=== PATIENT | female | born 1955 | race Caucasian/White ===

== ENCOUNTER 2019-10-04 21:02 | Emergency (ER) | payer MEDICARE, OTHER ==
[2019-10-04] MEDS ORDERED: MORPHINE SULFATE 2 MG INJ IV ONE (21:22)
[2019-10-04] MEDS ORDERED: Zofran 4 MG/2 ML VIAL IV ONE (21:23)
[2019-10-04] MEDS ORDERED: Zofran 4 MG/2 ML VIAL ONE (21:26)
[2019-10-04] MEDS ORDERED: MORPHINE SULFATE 2 MG INJ ONE (21:27)
--- NOTE | 2019-10-04 21:46 | ERPHSYRPT ---
- History of Present Illness Time Seen by Provider: 10/04/19 21:15 Source: patient Exam Limitations: no limitations Patient Subjective Stated Complaint: pt states she tripped at home and landed on her rt side. c/o pain in rt shoulder. Triage Nursing Assessment: pt alert and oriented, asnwers questions approp. pt arrive per ambulance. transfers to stretcher with assist of 4. pt splinting rt arm. grimacing in pain. skin pink warm and dry. respirations nonlabored. tendernes to rt upper amr, shoulder, radial pulse to rt wnl, pt reports good sensation to rt arm and hand. pt able to move fingers without diff. Physician History: Patient is a 64-year-old female presents to our ED with complaints of right shoulder and upper humerus pain. Patient states she was walking in her house. Her pajama bottoms got caught on a nail causing her to fall. Patient fell onto her right shoulder. Injury occurred approximately an hour prior to arrival. Pain described as an ache that is localized. No radiation. Pain worse with movement and palpation. Pain improved with rest. No other injuries reported. No BHT. No LOC. No neck pain. Cervical spine cleared clinically. No chest pain or shortness of breath. The fall was purely mechanical. No associated nausea vomiting or diaphoresis. No associated chest pain or shortness of breath. Patient has no other complaints or injuries at this time. Patient voices no other complaints. Patient arrived via EMS. Patient received morphine prior to her arrival. Pain somewhat improved. Occurred: just prior to arrival Method of Injury: fell Quality: constant Severity of Pain-Max: moderate Severity of Pain-Current: moderate Extremities Pain Location: shoulder: right, arm: right Modifying Factors: Improves With: movement Associated Symptoms: none Allergies/Adverse Reactions: codeine Allergy (Verified 10/04/19 21:25) Rash Home Medications: Azathioprine [Imuran] 50 mg PO BID 10/04/19 [History] Famotidine [Pepcid] 40 mg PO HS 10/04/19 [History] Metformin HCl 500 mg [Glucophage 500 MG] 500 mg PO HS 10/04/19 [History] PARoxetine HCl [Paxil] 40 mg PO DAILY 10/04/19 [History] hydrOXYzine HCL [Hydroxyzine HCl] 50 mg PO Q8HPRN PRN 10/04/19 [History] Hx Tetanus, Diphtheria Vaccination/Date Given: No Hx Influenza Vaccination/Date Given: Yes Hx Pneumococcal Vaccination/Date Given: Yes Immunizations Up to Date: No Travel Risk - International Travel If Yes where:: [facility] - Coronavirus Screening Has patient experienced Coronavirus symptoms: No - Review of Systems Constitutional: No Fever, No Chills Eyes: No Symptoms Ears, Nose, & Throat: No Symptoms Respiratory: No Cough, No Dyspnea Cardiac: No Chest Pain, No Edema, No Syncope Abdominal/Gastrointestinal: No Abdominal Pain, No Nausea, No Vomiting, No Diarrhea Genitourinary Symptoms: No Dysuria Musculoskeletal: No Back Pain, No Neck Pain Skin: No Rash Neurological: No Dizziness, No Focal Weakness, No Sensory Changes Psychological: No Symptoms Endocrine: No Symptoms All Other Systems: Reviewed and Negative - Past Medical History Respiratory History: Sleep Apnea Endocrine Medical History: Diabetes Type II Other Medical History: myasthenia gravis - Past Surgical History Past Surgical History: Yes Gastrointestinal: Cholecystectomy Other Surgical History: exploratry lap - Social History Smoking Status: Former smoker Exposure to second hand smoke: No Drug Use: none Patient Lives Alone: No - Nursing Vital Signs Nursing Vital Signs: Initial Vital Signs Temperature 98.4 F 10/04/19 21:06 Pulse Rate 78 10/04/19 21:06 Respiratory Rate 18 10/04/19 21:06 O2 Sat by Pulse Oximetry 98 10/04/19 21:06 Pain Scale Pain Intensity 6 - Physical Exam General Appearance: alert Eyes, Ears, Nose, Throat Exam: moist mucous membranes Neck Exam: non-tender, supple Cardiovascular/Respiratory Exam: chest non-tender, normal breath sounds, regular rate/rhythm, no respiratory distress Abdominal Exam: non-tender, No guarding Back Exam: normal inspection, No vertebral tenderness Shoulder Exam: normal inspection, no evidence of injury, bone tenderness ( Tenderness to palpation at the proximal right humerus. Overlying soft tissue intact. No open draining lesions. Extremities neurovascular intact distally. Compartments are soft. Cap refill less than 2 seconds.), limited ROM, No ecchymosis Elbow/Forearm Exam: normal inspection Wrist Exam: normal inspection Hand Exam: normal inspection Neuro/Tendon Exam: normal sensation, normal motor functions Mental Status Exam: alert, oriented x 3, cooperative Skin Exam: normal color, warm, dry SpO2: 98 O2 Delivery: Room Air - Radiology Exams Humerus X-ray Interpretation: Teleradiologist Report (right humerus neck fracture?) Ordered Tests: Active Orders 24 hr Category Date Time Status Isolation, Initiate & Maintain Q12H Care 10/04/19 21:24 Active HUMERUS Stat Exams 10/04/19 21:21 Taken SHOULDER Stat Exams 10/04/19 21:20 Taken Medication Summary Discontinued Medications Generic Name Dose Route Start Last Admin Trade Name Tay PRN Reason Stop Dose Admin Ketorolac Tromethamine 30 mg 10/04/19 22:58 Toradol 30 Mg Injection IV 10/04/19 22:59 STAT ONE Morphine Sulfate 2 mg 10/04/19 21:22 10/04/19 21:30 Morphine Sulfate 2 Mg Inj IV 10/04/19 21:23 2 mg STAT ONE Administration Morphine Sulfate Confirm 10/04/19 21:27 Morphine Sulfate 2 Mg Inj Administered 10/04/19 21:28 Dose 2 mg .ROUTE .STK-MED ONE Morphine Sulfate 4 mg 10/04/19 22:24 10/04/19 22:37 Morphine Sulfate 4 Mg Inj IV 10/04/19 22:25 4 mg STAT ONE Administration Morphine Sulfate Confirm 10/04/19 22:25 Morphine Sulfate 4 Mg Inj Administered 10/04/19 22:26 Dose 4 mg .ROUTE .STK-MED ONE Ondansetron HCl 4 mg 10/04/19 21:23 10/04/19 21:30 Zofran 4 Mg/2 Ml Vial IV 10/04/19 21:24 4 mg STAT ONE Administration Ondansetron HCl Confirm 10/04/19 21:26 Zofran 4 Mg/2 Ml Vial Administered 10/04/19 21:27 Dose 4 mg .ROUTE .STK-MED ONE - Progress Progress: improved Progress Note: 10/04/19 23:10 Patient reassessed. Pain improved. X-ray report as per the radiologist reveals a deformity at the neck of the humerus. Patient placed in upper extremity sling. Patient is now comfortable. Prescription for pain transmitted to her pharmacy. Patient states she is ready for discharge. No further work-up indicated at this time. Patient referred to orthopedic clinic for further evaluation. Counseled pt/family regarding: diagnosis, need for follow-up, rad results - Departure Departure Disposition: Home Clinical Impression: Fx humeral neck Condition: Stable Critical Care Time: No Referrals: PAUL BAUMAN [Primary Care Provider] - Additional Instructions: Discharge/Care Plan JOSE M GUZMAN was seen on 10/04/19 in the Emergency Room. The patient was counseled regarding Diagnosis,Lab results, Imaging studies, need for follow up and when to return to the Emergency Room. Prescriptions given: Discharge Note I have spoken with the patient and/or caregivers. I have explained the patient' s condition, diagnosis and treatment plan based on the information available to me at this time. I have answered the patient's and/or caregiver's questions and addressed any concerns. The patient and/or caregivers have as good understanding of the patient's diagnosis, condition and treatment plan as can be expected at this point. The vital signs have been stable. The patient's condition is stable and appropriate for discharge from the emergency department. The patient will pursue further outpatient evaluation with the primary care physician or other designated or consulting physician as outlined in the discharge instructions. The patient and/or caregivers are agreeable to this plan of care and follow-up instructions have been explained in detail. The patient and/or caregivers have received these instruction. The patient/and or caregivers are aware that any significant change in condition or worsening of symptoms should prompt an immediate return to this or the closest emergency department or call 911. Prescriptions: Ketorolac Tromethamine [Toradol] 10 mg PO Q8H PRN PRN 5 Days #15 tablet PRN Reason: Pain Outpatient Orders: Ortho Referral Time Frame: 1 Day, Location: ORTHO CLINIC
[2019-10-04] MEDS ORDERED: MORPHINE SULFATE 4 MG INJ IV ONE (22:24)
[2019-10-04] MEDS ORDERED: MORPHINE SULFATE 4 MG INJ ONE (22:25)
[2019-10-04] MEDS ORDERED: TORAdol 30 mg Injection IV ONE (22:58)
[2019-10-04 23:01] VITALS: BP 160/80; PULSE 76
[2019-10-04 23:03] VITALS: O2SAT 98
[2019-10-04] MEDS ORDERED: TORAdol 30 mg Injection ONE (23:14)
--- NOTE | 2019-10-05 07:26 | XRAY ---
Indication: Pain following fall. Comparison: None 2 views of the right humerus demonstrates nondisplaced minimally angulated humeral neck fracture. Elsewhere osteopenia and mild AC degenerative arthropathy. No other bony, articular, or soft tissue abnormalities. Comment: Preliminary interpretation was made by [facility]. No critical discrepancy.
--- NOTE | 2019-10-05 07:28 | XRAY ---
Indication: Pain following fall. Comparison: None 3 views of the right shoulder demonstrates nondisplaced minimally angulated humeral neck fracture. Elsewhere osteopenia and mild AC degenerative arthropathy. No other bony, articular, or soft tissue abnormalities. Comment: Preliminary interpretation was made by [facility]. No critical discrepancy.
== END 2019-10-04 23:35 | disposition home or self-care (01) ==
LOC: ED 21:02
DX: S42.211A Unspecified displaced fracture of surgical neck of right humerus, initial encounter for closed fracture (principal); I10 Essential (primary) hypertension; W01.0XXA Fall on same level from slipping, tripping and stumbling without subsequent striking against object, initial encounter; M25.511 Pain in right shoulder; E11.9 Type 2 diabetes mellitus without complications; G70.00 Myasthenia gravis without (acute) exacerbation; Z79.899 Other long term (current) drug therapy; Z79.84 Long term (current) use of oral hypoglycemic drugs
CPT/HCPCS: 73030; 73060; 96374; 96375; 96376; 99284; J1885; J2270; J2405

== ENCOUNTER 2024-05-08 11:32 | Emergency (ER) | payer MEDICARE, OTHER ==
--- NOTE | 2024-05-08 11:36 | ERPHSYRPT ---
- History of Present Illness Time Seen by Provider: 05/08/24 11:34 Source: patient Exam Limitations: no limitations Physician History: This is an overweight white female patient of Dr. Traore who arrives by private vehicle accompanied by her . Dr. Traore saw this patient and her office today and sent the patient to the emergency department to be evaluated secondary to a significant size abscess in the abdominal wall the right upper quadrant as well as some EKG changes she was concerned about. Patient has seen a production line operator recently and was given a clean bill of health. Patient and patient's report. Patient has no known coronary artery dise ase. Approximately 6 days ago the patient and her noticed a small raised area on the skin of the abdominal wall in the right upper quadrant. She also noticed a spider near her but not on her skin in that area. However, over the last 6 days the site has increased in size in terms of redness and abscess with drainage. There is an odor to the drainage as well. Patient has not had any documented fevers. She has a history of diabetes, myasthenia gravis and osteoarthritis. Timing/Duration: day(s) (6) Quality: painful Severity: moderate Location: other (Skin abscess right upper quadrant abdominal wall) Possible Causes: no cause identified Associated Symptoms: change in skin texture Allergies/Adverse Reactions: codeine Allergy (Verified 05/08/24 11:43) Rash pyridostigmine [From Mestinon] Allergy (Verified 05/08/24 11:43) Home Medications: Carbidopa/Levodopa [Carbidopa-Levo ER 50-200 Tab] 1 each PO QID 05/08/24 [History] Oxycodone HCl [Oxycodone HCl ER] 10 mg PO UD 05/08/24 [History] Potassium Citrate [Potassium] 99 mg PO DAILY 05/08/24 [History] Pregabalin 50 mg [Lyrica 50MG] 50 mg PO BID 05/08/24 [History] Rotigotine [Neupro] 1 ea DAILY 05/08/24 [History] Hx Tetanus, Diphtheria Vaccination/Date Given: No Hx Influenza Vaccination/Date Given: Yes Hx Pneumococcal Vaccination/Date Given: Yes Travel Risk - International Travel Have you traveled outside of the country in past 3 weeks: No - Emerging Infectious Disease Are you exhibiting symptoms associated with any current EIDs: No - Review of Systems Constitutional: No Symptoms Eyes: No Symptoms Ears, Nose, & Throat: No Symptoms Respiratory: No Symptoms Cardiac: No Symptoms Abdominal/Gastrointestinal: No Symptoms Genitourinary Symptoms: No Symptoms Musculoskeletal: No Symptoms Skin: Cellulitis (Right upper quadrant abdominal wall with associated abscess), Other (Skin abscess right upper quadrant abdominal wall) Neurological: No Symptoms Psychological: No Symptoms Endocrine: No Symptoms Hematologic/Lymphatic: No Symptoms Immunological/Allergic: No Symptoms All Other Systems: Reviewed and Negative - Past Medical History Neurological History: Other Cardiac History: No Pertinent History Respiratory History: No Pertinent History Endocrine Medical History: No Pertinent History Musculoskeletal History: Fractures, Osteoarthritis, Other Other Medical History: PATIENT REPORTS IN LAST 6 MONTHS ALSO HAVING DIFFICULTY WITH BOWEL AND BLADDER INCONTINENCE. PATIENT REPORTS FEELS WHEN SHE IS GOING BUT CAN'T STOP IT. - Past Surgical History Past Surgical History: Yes Gastrointestinal: Cholecystectomy Other Surgical History: exploratry lap - Social History Smoking Status: Former smoker Exposure to second hand smoke: No Drug Use: none Patient Lives Alone: No - Nursing Vital Signs Nursing Vital Signs: Initial Vital Signs Temperature 97.0 F 05/08/24 11:33 Pulse Rate 70 05/08/24 11:33 Respiratory Rate 20 05/08/24 11:33 Blood Pressure 148/72 05/08/24 11:33 O2 Sat by Pulse Oximetry 98 05/08/24 11:33 Pain Scale Pain Intensity 4 - Physical Exam General Appearance: no apparent distress, alert, anxiety, obese Eye Exam: PERRL/EOMI, eyes nml inspection Ears, Nose, Throat Exam: normal ENT inspection, moist mucous membranes Neck Exam: normal inspection, non-tender, supple, full range of motion Respiratory Exam: normal breath sounds, lungs clear, airway intact, No chest tenderness, No respiratory distress Cardiovascular Exam: regular rate/rhythm, normal heart sounds, normal peripheral pulses Gastrointestinal/Abdomen Exam: soft, normal bowel sounds, tenderness (In the area of the skin abscess and cellulitis of the right upper quadrant abdominal wall) Pelvic Exam: not done Rectal Exam: not done Back Exam: normal inspection, normal range of motion, No CVA tenderness, No vertebral tenderness Extremity Exam: normal inspection, normal range of motion, pelvis stable, other (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) Neurologic Exam: alert, oriented x 3, cooperative, pe manager II-XII nml as tested Lymphatic Exam: No adenopathy SpO2 Interpretation: normal O2 Delivery: Room Air Procedures - Incision and Drainage Time of Procedure: 12:10 (Malodorous pus) Site: Skin abscess of the right upper quadrant abdominal wall Anesthesia: 1% Lidocaine cc's of anesthesia: other (10 cc) I & D Procedure: betadine prep, culture obtained, other (Plain packing gauze) Results: moderate amount pus - Course Nursing assessment & vital signs reviewed: Yes EKG Interpreted by Me: RATE (83), Sinus Rhythm, NORMAL AXIS, LAFB, Right Bundle Branch Block, Other (Short TN interval PVCs. QTc is 431. No evidence of any acute ischemia on today's twelve-lead EKG.) Ordered Tests: Active Orders 24 hr Category Date Time Status IV Insertion STAT Care 05/08/24 12:34 Active Pulse Oximetry (ED) STAT Care 05/08/24 12:34 Completed BLOOD CULTURE Stat Lab 05/08/24 13:06 Received CBC W DIFF Stat Lab 05/08/24 12:34 Completed CMP Stat Lab 05/08/24 13:00 Completed CULTURE,WOUND Stat Lab 05/08/24 12:52 Received Lactic Acid Stat Lab 05/08/24 12:34 Completed MAGNESIUM Stat Lab 05/08/24 13:00 Completed TROPONIN Q4H Lab 05/08/24 13:00 Completed TROPONIN Q4H Lab 05/08/24 16:45 Ordered TROPONIN Q4H Lab 05/08/24 20:45 Ordered Medication Summary Discontinued Medications Generic Name Dose Route Start Last Admin Trade Name Freq PRN Reason Stop Dose Admin Ceftriaxone Sodium 1 gm in 100 mls @ 200 mls/hr 05/08/24 12:36 05/08/24 13:46 Rocephin 1 Gm / 100 Ml Nacl IV 05/08/24 13:05 Infused STAT ONE Infusion Ceftriaxone Sodium Confirm 05/08/24 13:00 Rocephin 1 Gm / 100 Ml Nacl Administered 05/08/24 13:01 Dose 1 gm in 100 mls @ ud IV .STK-MED ONE Lidocaine HCl Confirm 05/08/24 11:58 Lidocaine Hcl 1% 20 Ml Mdv 20 Ml Ml Administered 05/08/24 11:59 Dose 10 ml .ROUTE .STK-MED ONE Morphine Sulfate 4 mg 05/08/24 12:35 05/08/24 13:10 Morphine Sulfate 4 Mg/Ml Injection IV 05/08/24 12:36 4 mg STAT ONE Administration Morphine Sulfate Confirm 05/08/24 13:00 Morphine Sulfate 4 Mg/Ml Injection Administered 05/08/24 13:01 Dose 4 mg .ROUTE .STK-MED ONE Ondansetron HCl 4 mg 05/08/24 12:34 05/08/24 13:08 Ondansetron Hcl 4 Mg/2 Ml Vial IV 05/08/24 12:35 4 mg STAT STA Administration Ondansetron HCl Confirm 05/08/24 13:00 Ondansetron Hcl 4 Mg/2 Ml Vial Administered 05/08/24 13:01 Dose 4 mg .ROUTE .STK-MED ONE Lab/Rad Data: Laboratory Result Diagrams 05/08/24 12:34 05/08/24 13:00 Laboratory Results 05/08/24 05/08/24 05/08/24 Range/Units 13:00 13:00 12:34 WBC (3.98-10.04) x10^3/uL RBC (3.93-5.22) x10^6/uL Hgb (11.2-15.7) g/dL Hct (34.1-44.9) % MCV (79.4-94.8) fL MCH (25.6-32.2) pg MCHC (32.2-35.5) g/dL RDW (11.7-14.4) % Plt Count (182-369) x10^3/uL MPV (9.4-12.3) fL Gran % (34.0-71.1) % Immature Gran % (Auto) (0.001-0.429) % Nucleat RBC Rel Count (0.00-0.2) % Eos # (Auto) (0.04-0.36) x10^3/uL Immature Gran # (Auto) (0.001-0.031) x10^3u/L Absolute Lymphs (auto) (1.18-3.74) x10^3/uL Absolute Monos (auto) (0.24-0.86) x10^3/uL Absolute Nucleated RBC (0.00-0.012) x10^3u/L Lymphocytes % (19.3-51.7) % Monocytes % (4.7-12.5) % Eosinophils % (0.7-5.8) % Basophils % (0.1-1.2) % Absolute Granulocytes (1.56-6.13) x10^3/uL Basophils # (0.01-0.08) x10^3/uL Sodium 142 (135-145) mmol/L Potassium 4.1 (3.5-5.1) mmol/L Chloride 106 (98-107) mmol/L Carbon Dioxide 26 (22-30) mmol/L Anion Gap 14.4 (5-15) MEQ/L BUN 19 H (7-17) mg/dL Creatinine 0.60 (0.52-1.04) mg/dL Estimated GFR 96.5 ML/MIN Glucose 108 H (74-106) mg/dL Lactic Acid 1.0 (0.4-2.0) Calcium 9.4 (8.4-10.2) mg/dL Magnesium 1.7 (1.6-2.3) mg/dL Total Bilirubin 0.60 (0.2-1.3) mg/dL AST 23 (14-36) U/L ALT 13 (0-35) U/L Alkaline Phosphatase 105 (38-126) U/L Troponin I < 0.012 (0.000-0.033) ng/mL Serum Total Protein 7.1 (6.3-8.2) g/dL Albumin 3.9 (3.5-5.0) g/dL 05/08/24 Range/Units 12:34 WBC 10.1 H (3.98-10.04) x10^3/uL RBC 4.48 (3.93-5.22) x10^6/uL Hgb 11.9 (11.2-15.7) g/dL Hct 38.0 (34.1-44.9) % MCV 84.8 (79.4-94.8) fL MCH 26.6 (25.6-32.2) pg MCHC 31.3 L (32.2-35.5) g/dL RDW 12.7 (11.7-14.4) % Plt Count 293 (182-369) x10^3/uL MPV 10.2 (9.4-12.3) fL Gran % 84.7 H (34.0-71.1) % Immature Gran % (Auto) 0.6 H (0.001-0.429) % Nucleat RBC Rel Count 0.0 (0.00-0.2) % Eos # (Auto) 0.05 (0.04-0.36) x10^3/uL Immature Gran # (Auto) 0.06 H (0.001-0.031) x10^3u/L Absolute Lymphs (auto) 0.95 L (1.18-3.74) x10^3/uL Absolute Monos (auto) 0.46 (0.24-0.86) x10^3/uL Absolute Nucleated RBC 0.00 (0.00-0.012) x10^3u/L Lymphocytes % 9.4 L (19.3-51.7) % Monocytes % 4.6 L (4.7-12.5) % Eosinophils % 0.5 L (0.7-5.8) % Basophils % 0.2 (0.1-1.2) % Absolute Granulocytes 8.55 H (1.56-6.13) x10^3/uL Basophils # 0.02 (0.01-0.08) x10^3/uL Sodium (135-145) mmol/L Potassium (3.5-5.1) mmol/L Chloride (98-107) mmol/L Carbon Dioxide (22-30) mmol/L Anion Gap (5-15) MEQ/L BUN (7-17) mg/dL Creatinine (0.52-1.04) mg/dL Estimated GFR ML/MIN Glucose (74-106) mg/dL Lactic Acid (0.4-2.0) Calcium (8.4-10.2) mg/dL Magnesium (1.6-2.3) mg/dL Total Bilirubin (0.2-1.3) mg/dL AST (14-36) U/L ALT (0-35) U/L Alkaline Phosphatase (38-126) U/L Troponin I (0.000-0.033) ng/mL Serum Total Protein (6.3-8.2) g/dL Albumin (3.5-5.0) g/dL - Progress Progress: improved, pain not gone completely Progress Note: 05/08/24 12:45 My medical decision making and the assignment of moderate high complexity of this patient's medical issue today is based on review of the patient's past medical history, review the patient's medication list, reviewed patient drug allergy list, history present illness and physical findings on examination. The workup in this patient includes placement of an intravenous line, incision and drainage of abscess, wound culture of pus from abscess, CBC, CMP, lactic acid level, twelve-lead EKG, troponin level, infusion of Rocephin 1 g intravenously. The differential diagnosis includes but is not limited to abdominal wall abscess, cellulitis, EKG changes secondary to infection, myocardial infarction, electrolyte abnormalities, arrhythmias 05/08/24 14:34 I interpreted the patient's laboratory data results. Based on the laboratory data results, the patient does have a mildly elevated leukocytosis. She definitely has an abscess on her abdominal wall and this is likely the unde rlying cause. 05/08/24 15:13 I had spoken to Dr. Do regarding placing this patient in observation more as a request from the primary care provider. He accepted the patient to be placed in observation overnight. However, the patient has decided she preferred to go home. Counseled pt/family regarding: lab results, diagnosis, need for follow-up Medical Desision Making - Independent Historian Additional History obtained from: Spouse - Discussion of managment Agreed on:: place in obs Will see patient: in hospital - Diagnostic Testing Diagnostic test were ordered, analyzed, and reviewed by me: Yes - Risk of complications The pt has a mod risk of morbidity or mortality based on: Need for prescription drug management - Departure Departure Disposition: Home Clinical Impression: Abdominal wall abscess Condition: Stable Critical Care Time: No Referrals: MELANIE TRAORE DO [Primary Care Provider] - Follow up/PCP as directed Additional Instructions: Dressing changes twice a day as discussed. Take your antibiotics as discussed. Use the pain medicine as you have at home and we will supplement a couple more days of the Percocet 7.5/325 medication. Call your primary care provider to make arrangements for follow-up appointment to be seen in the next 2 to 3 days. Prescriptions: Levofloxacin [Levaquin 500 MG Tablet] 500 mg PO DAILY #7 tablet Oxycodone HCl/Acetaminophen [Oxycodone-Acetaminophn 7.5-325] 1 each PO Q8H PRN #6 tablet MDD 3 PRN Reason: Moderate To Severe Pain
[2024-05-08] MEDS ORDERED: XYLOCAINE 1% HCL 20 ML MDV ONE (11:58)
[2024-05-08 12:48] VITALS: PULSE 70; TEMP 97
[2024-05-08] MEDS ORDERED: ROCEPHIN 1 GM / 100 ML NaCl 1 GM/100 ML IVPB IV ONE (13:00)
[2024-05-08] MEDS ORDERED: Zofran 4 MG/2 ML VIAL ONE (13:00)
[2024-05-08] MEDS ORDERED: MORPHINE SULFATE 4 MG INJ ONE (13:00)
[2024-05-08] MEDS: Zofran 4 MG/2 ML VIAL IV STA (13:08)
[2024-05-08] MEDS: ROCEPHIN 1 GM / 100 ML NaCl 1 GM/100 ML IVPB IV ONE (13:09)
[2024-05-08] MEDS: MORPHINE SULFATE 4 MG INJ IV ONE (13:10)
[2024-05-08 13:11] LABS: Absolute Neutrophil Ct (ANC) 8.55 x10^3/uL (1.56-6.13); BASOPHIL % 0.2 % (0.1-1.2); Basophil (Absolute #) 0.02 x10^3/uL (0.01-0.08); Eosinophil % 0.5 % (0.7-5.8); Eosinophil (Absolute #) 0.05 x10^3/uL (0.04-0.36); Hemoglobin 11.9 g/dL (11.2-15.7); IMMATURE GRAN # 0.06 x10^3u/L (0.001-0.031); IMMATURE GRAN % 0.6 % (0.001-0.429); Lymphocyte (Absolute #) 0.95 x10^3/uL (1.18-3.74); Lymphocytes % 9.4 % (19.3-51.7); Mean Cell Volume 84.8 fL (79.4-94.8); Mean Corpuscular Hemoglobin 26.6 pg (25.6-32.2); Mean Corpuscular Hgb Concent. 31.3 g/dL (32.2-35.5); Mean Platelet Volume 10.2 fL (9.4-12.3); Monocyte (Absolute #) 0.46 x10^3/uL (0.24-0.86); Monocytes % 4.6 % (4.7-12.5); Neutrophil % 84.7 % (34.0-71.1); Platelet Count 293 x10^3/uL (182-369); Red Blood Count 4.48 x10^6/uL (3.93-5.22); Red Cell Distribution Width 12.7 % (11.7-14.4); White Blood Count 10.1 x10^3/uL (3.98-10.04)
[2024-05-08 13:38] LABS: ALBUMIN 3.9 g/dL (3.5-5.0); ANION GAP 14.4 MEQ/L (5-15); BILIRUBIN,TOTAL 0.6 mg/dL (0.2-1.3); Calcium 9.4 mg/dL (8.4-10.2); Creatinine 1 0.6 mg/dL (0.52-1.04); EST GLOMERULAR FILTRATION RATE 96.5 ML/MIN; Potassium 4.1 mmol/L (3.5-5.1); Total Protein 7.1 g/dL (6.3-8.2)
[2024-05-08 13:52] VITALS: RESP 18
[2024-05-08 14:36] LABS: MAGNESIUM 1.7 mg/dL (1.6-2.3)
[2024-05-08 15:04] VITALS: BP 120/56; O2SAT 96
== END 2024-05-08 15:20 | disposition home or self-care (01) ==
LOC: ED 11:32
DX: L02.211 Cutaneous abscess of abdominal wall (principal); Z79.899 Other long term (current) drug therapy; D72.829 Elevated white blood cell count, unspecified
CPT/HCPCS: 10060; 36000; 36415; 80053; 83605; 83735; 84484; 85025; 87040; 87070; 87077; 87186; 94760; 96365; 96374; 96375; 99284; J0696; J2270; J2405